=== PATIENT | male | born 1995 | race Two or more races ===

== ENCOUNTER 2025-05-01 19:37 | Emergency (ER) | payer OTHER ==
[~2025-05-01] VITALS: Ht 193 cm; Wt 93.0 kg
[2025-05-01] MEDS ORDERED: LIDOCAINE 1%-EPI 1:100,000 20 ML VIAL ONE (19:57)
[2025-05-01] MEDS ORDERED: BACI28.433 TP (20:42)
[2025-05-01] MEDS ORDERED: IBUP-1490 PO (20:42)
[2025-05-01] MEDS ORDERED: BACI/NEOM/POLY B OINT PKT 1 UDPKT PACKET ONE (20:58)
[2025-05-01] MEDS ORDERED: TDAP [DIPH/PERTUSSIS/TET] 0.5 ML VIAL IM ONE (20:58)
[2025-05-01] MEDS: TDAP [DIPH/PERTUSSIS/TET] 0.5 ML VIAL IM ONE (21:01)
[2025-05-01] MEDS: BACI/NEOM/POLY B OINT PKT 1 UDPKT PACKET TP ONE (21:02)
[2025-05-01 21:56] VITALS: BP 130/80; TEMP 98; O2SAT 98
== END 2025-05-01 21:58 | disposition home or self-care (01) ==
LOC: ER 19:39
DX: S51.811A Laceration without foreign body of right forearm, initial encounter (principal); W22.8XXA Striking against or struck by other objects, initial encounter; Y93.89 Activity, other specified; Y92.89 Other specified places as the place of occurrence of the external cause; Y99.8 Other external cause status
CPT/HCPCS: 12002; 73110; 90471; 90715; 99283; J3490

== ENCOUNTER 2025-05-12 09:04 | Emergency (ER) | payer OTHER ==
[~2025-05-12] VITALS: Ht 193 cm; Wt 95.3 kg
[~2025-05-12 09:04] MED LIST: BACI28.433 TP; IBUP-1490 PO
[2025-05-12 09:16] VITALS: BP 142/80; TEMP 97.9
[2025-05-12 09:35] VITALS: O2SAT 99
== END 2025-05-12 09:49 | disposition home or self-care (01) ==
LOC: ER 09:10
DX: S51.811D Laceration without foreign body of right forearm, subsequent encounter (principal); Z48.02 Encounter for removal of sutures; X58.XXXD Exposure to other specified factors, subsequent encounter